=== PATIENT | male | born 1970 | race African-American/Black ===

== ENCOUNTER 2019-12-13 21:42 | Emergency (ER) | payer SELFPAY ==
[2019-12-13 21:54] VITALS: BP 117/77; PULSE 123; RESP 18; O2SAT 100
--- NOTE | 2019-12-13 23:00 | PC.NURSE ---
PT SLEEPING IN WAITING ROOM, DID NOT WANT TO GET UP WHEN CALLED
--- NOTE | 2019-12-14 00:05 | ED.GENADULT ---
HPI - General Adult General Chief complaint: Recheck/Abnormal Lab/Rx Stated complaint: out of keppra Time Seen by Provider: 12/14/19 00:01 Source: patient and RN notes reviewed Mode of arrival: EMS Limitations: no limitations History of Present Illness HPI narrative: Pt is a 49 y/o male who presents to the ED, via EMS, with c/o refill on a medication. Pt reports he has a history of seizures. Pt states he is typically on Keppra 1000 mg twice a day. He has been unable to take his medication for the past 2 days. He reports he is typically seen at [facility] for his seizures. Pt reports lightheadedness, but denies chills, diaphoresis, a fever, nausea, or vomiting. Pt arrives intoxicated to the ED. Pt denies any other PMHx. complaint: Refill on his medication Onset (ago): day(s) (ran out 2 days ago) Radiation: non-radiation Associated symptoms: other (lightheadedness) Related Data Allergies Allergy/AdvReac Type Severity Reaction Status Date / Time No Known Allergies Allergy Verified 12/14/19 00:21 Review of Systems Review of Systems: All systems reviewed & are unremarkable except as noted in HPI and below Constitutional: Constitutional: Denies chills and Denies fever(s) Cardiovascular: Cardiovascular: Denies diaphoresis Gastrointestinal: Gastrointestinal: Denies nausea and Denies vomiting Neurologic: Reports other (lightheadedness) PMFSH Past Medical History Medical History (Updated 12/14/19 @ 05:23 by Hung Boudreaux MD) Seizures Surgical History Surgical History (Updated 12/14/19 @ 00:09 by Jud Chávez) History of ankle surgery History of mandibular surgery Social History Social History (Updated 12/14/19 @ 00:09 by Jud Chávez) Smoking status: Smoker, status unknown Alcohol intake: current Exam Narrative: Exam Narrative: GENERAL: Well-appearing, well-nourished, and in no acute distress. HEAD: Normocephalic, atraumatic. ENT: Mucous membranes moist. CHEST: Clear to auscultation. No respiratory distress. HEART: Tachycardic and regular. + Murmur. Normal peripheral pulses. ABDOMEN: Soft, nontender, nondistended. EXTREMITIES: Normal range of motion. No edema. NEURO: Alert and oriented x3. Course Course Emergency Course: Patient orally loaded with Keppra. Will discharge with prescription. Patient most likely was intoxicated and unable to get a ride back to where he typically stays and ended up in the ER. Patient is now clinically sober. Vital Signs Vital signs: Vital Signs Pulse Rate 123 H 12/13/19 21:54 Respiratory Rate 18 12/13/19 21:54 Blood Pressure 117/77 12/13/19 21:54 Pulse Oximetry 100 12/13/19 21:54 Pulse Rate 112 H 12/14/19 05:11 Respiratory Rate 16 12/14/19 05:11 Blood Pressure 109/77 12/14/19 05:11 Pulse Oximetry 95 12/14/19 05:11 Medical Decision Making Vital Signs Vital Signs: Vital Signs Pulse Rate 123 H 12/13/19 21:54 Respiratory Rate 18 12/13/19 21:54 Blood Pressure 117/77 12/13/19 21:54 Pulse Oximetry 100 12/13/19 21:54 Pulse Rate 112 H 12/14/19 05:11 Respiratory Rate 16 12/14/19 05:11 Blood Pressure 109/77 12/14/19 05:11 Pulse Oximetry 95 12/14/19 05:11 Discharge Plan Discharge Clinical Impression: Encounter for medication refill Patient Disposition: Home, Self-Care Condition: Stable Instructions: Medicine Refill (ED) Additional Instructions: Return the ER if you have chest pain or shortness of breath, you lose consciousness, you have fever over 100.4 ?F, you have additional concerns. Please follow-up with your primary care doctor about getting refills of your medication. Prescriptions: New levetiracetam [Keppra] 1,000 mg tablet 1,000 mg PO BID Qty: 14 RF: 0 Follow-up/Referrals: UNKNOWN,DOCTOR [Primary Care Provider] -
[2019-12-14] MEDS: SODIUM CHLORIDE 0.9% IV 1,000 ML 999 ML IV CONT (00:16)
[2019-12-14] MEDS: levETIRAcetam 500 MG TABLET 1000 MG PO (01:01)
[2019-12-14 01:16] VITALS: BP 132/80; PULSE 112; RESP 20; O2SAT 95
[2019-12-14 02:48] VITALS: BP 121/77; PULSE 117; RESP 16; O2SAT 95
[2019-12-14 05:11] VITALS: BP 109/77; PULSE 112; RESP 16; O2SAT 95
--- NOTE | 2019-12-26 02:31 | PC.NURSE ---
LATE ENTRY This note is being entered to document information to the patient's record. The following information was omitted on [12/14/19], by [brittny]. 1L of NS finished infusing at 0117.
--- NOTE | 2019-12-27 13:47 | PC.NURSE ---
LATE ENTRY This note is being entered to document information to the patient's record. The following information was omitted on [12/13/2019], by [Da Romero RN]. NS stop time 9366
== END 2019-12-14 05:42 | disposition home or self-care (01) ==
PROVIDERS: Emergency Provider Emergency Medicine
DX: G40.909 Epilepsy, unspecified, not intractable, without status epilepticus (principal)
CPT/HCPCS: 96360; 99283; A9270; J7030